=== PATIENT | female | born 1970 | race African-American/Black ===

== ENCOUNTER 2017-03-24 17:19 | Inpatient (IN) | payer SELFPAY ==
[~2017-03-24] VITALS: Ht 175.3 cm; Wt 49.9 kg
[2017-03-24] MEDS ORDERED: LORAZEPAM 2MG/ML CPJ IV STA (17:52)
[2017-03-24] MEDS ORDERED: SODIUM CHLORIDE 0.9% 1,000 ML IV ONE (17:52)
[2017-03-24 18:38] LABS: BASOPHILS % 0.5 % (0.0-2.0); EOSINOPHILS % 2.3 % (0.0-5.0); HEMATOCRIT. 39.2 % (36.0-48.0); LYMPHOCYTES % 26.6 % (20.0-50.0); MEAN CORPUSCULAR HEMOGLOBIN 30.4 pg (28.0-32.0); MEAN PLATELET VOLUME 7.7 fl (7.4-10.4); MONOCYTES % 3.9 % (2.0-8.0); NEUTROPHILS % 66.7 % (40.0-76.0); PLATELET 354 x1000/uL (130-400); RED BLOOD CELL COUNT 4.27 mill/uL (4.2-5.4); RED CELL DISTRIBUTION WIDTH 13.6 % (11.6-14.6)
[2017-03-24 18:41] LABS: CARBON DIOXIDE 26 mEq/L (21-32); CHLORIDE 105 mEq/L (98-107)
[2017-03-24 18:42] LABS: ETHANOL BLOOD 253 mg/dL
[2017-03-24 18:43] LABS: HCG SCREEN NEGATIVE
[2017-03-24 18:46] LABS: CREATINE KINASE 136 IU/L (26-192)
[2017-03-24 18:52] LABS: AMMONIA 39 uMol/L (<32)
[2017-03-24] MEDS ORDERED: KCL 10MEQ/50ML PREMIX 50 ML IV ONE (19:00)
[2017-03-24] MEDS ORDERED: SODIUM CHLORIDE 0.9% 1000ML BAG (SEPSIS BOLUS) IV ONE (19:00)
[2017-03-24 19:26] LABS: CLARITY URINE CLOUDY (CLEAR); COLOR URINE YELLOW (YELLOW); GLUCOSE URINE NEGATIVE (NEGATIVE); KETONES URINE NEGATIVE (NEGATIVE); LEUKOCYTE ESTERASE URINE TRACE (NEGATIVE); NITRITE URINE NEGATIVE (NEGATIVE); OCCULT BLOOD URINE TRACE (NEGATIVE); PH URINE 5.5 (4.5-8.0); PROTEIN URINE TRACE (NEGATIVE); SPECIFIC GRAVITY URINE 1.013 (1.005-1.030)
[2017-03-24 19:39] LABS: *AMPHETAMINES SCREEN URINE NEGATIVE (NEGATIVE); *BARBITURATES SCREEN URINE NEGATIVE (NEGATIVE); *BENZODIAZEPINES SCREEN URINE NEGATIVE (NEGATIVE); *COCAINE SCREEN URINE NEGATIVE (NEGATIVE); CANNABINOID URINE SCREEN NEGATIVE (NEGATIVE); METHADONE URINE SCREEN NEGATIVE (NEGATIVE); OPIATES URINE SCREEN NEGATIVE (NEGATIVE); PHENCYCLIDINE URINE SCREEN PRESUMTIVE POSITIVE (NEGATIVE)
[2017-03-24] MEDS ORDERED: CEFTRIAXONE 1 G PREMIX 50 ML IV ONE (20:30)
[2017-03-24] MEDS ORDERED: POTASSIUM CHLORIDE 20MEQ TABLET SR PO ONE (21:15)
[2017-03-25] VITALS (12 sets, daily range): BP systolic 86–128; BP diastolic 59–84
[2017-03-25] MEDS ORDERED: LORAZEPAM 2MG/ML CPJ IV PRN (08:00)
[2017-03-25 11:45] LABS: BASOPHILS % 0.4 % (0.0-2.0); EOSINOPHILS % 0.2 % (0.0-5.0); HEMATOCRIT. 41.9 % (36.0-48.0); HEMOGLOBIN. 13.9 g/dL (12.0-16.0); LYMPHOCYTES % 8.6 % (20.0-50.0); MEAN CORPUSCULAR HEMOGLOBIN 30.5 pg (28.0-32.0); MEAN PLATELET VOLUME 8.1 fl (7.4-10.4); MONOCYTES % 3.4 % (2.0-8.0); NEUTROPHILS % 87.4 % (40.0-76.0); PLATELET 342 x1000/uL (130-400); RED BLOOD CELL COUNT 4.55 mill/uL (4.2-5.4); RED CELL DISTRIBUTION WIDTH 13.4 % (11.6-14.6)
[2017-03-25 11:47] LABS: CARBON DIOXIDE 26 mEq/L (21-32); CHLORIDE 104 mEq/L (98-107)
[2017-03-26 06:00] VITALS: BP 127/84
[2017-03-26 08:00] VITALS: BP 139/75
[2017-03-26 10:00] VITALS: BP 103/67
== END 2017-03-26 12:11 | disposition left against medical advice (07) | DRG 463 ==
LOC: ER 17:19 → 5EST 21:36 → ENRESERV 21:45 → EDBEDREQ 03-25 00:04 → 5EST 03-25 04:49
PROVIDERS: ADMIT Hospitalist; ATTEND Hospitalist
DX: N39.0 Urinary tract infection, site not specified (principal); G92 Toxic encephalopathy; Z78.1 Physical restraint status; R65.10 Systemic inflammatory response syndrome (SIRS) of non-infectious origin without acute organ dysfunction; F16.10 Hallucinogen abuse, uncomplicated; F10.239 Alcohol dependence with withdrawal, unspecified; F10.229 Alcohol dependence with intoxication, unspecified; E87.6 Hypokalemia
CPT/HCPCS: 36415; 80048; 80053; 80305; 81001; 82140; 82550; 83605; 83735; 84703; 85025; 87040; 87077; 87086; 87186; 93005; 96361; 96365; 99291; G0482; J0696; J2060; J3480; J7030